=== PATIENT | male | born 1985 | race African-American/Black ===

== ENCOUNTER 2024-01-01 16:47 | Emergency (ER) | payer OTHER ==
[~2024-01-01] VITALS: Ht 172.7 cm; Wt 84.1 kg
[2024-01-01 16:57] VITALS: TEMP 99.2
[2024-01-01] MEDS: TraMADol HCL 50 MG TABLET PO ONE (20:53)
[2024-01-01] MEDS: CLINDAMYCIN PHOS 150 MG/ML 4 ML VIAL IM ONE (21:52)
[2024-01-01] MEDS ORDERED: TRAM50TA5 PO (23:10)
[2024-01-01] MEDS ORDERED: CLIN-142 PO (23:10)
[2024-01-01 23:18] VITALS: BP 127/64; PULSE 92; RESP 18
== END 2024-01-01 23:25 | disposition home or self-care (01) ==
LOC: EMS 16:50
DX: L02.01 Cutaneous abscess of face (principal); L03.211 Cellulitis of face; Z91.018 Allergy to other foods
CPT/HCPCS: 99283; 96372; J3490